=== PATIENT | female | born 1985 | race Caucasian/White ===

== ENCOUNTER 2018-01-15 06:20 | Emergency (ER) | payer SELFPAY ==
[~2018-01-15] VITALS: Ht 162.6 cm; Wt 74.8 kg
[~2018-01-15 06:20] MED LIST: CITA10TA59; HYDR-1421
[2018-01-15 07:23] VITALS: BP 137/91
[2018-01-15] MEDS ORDERED: KETOROLAC TROMETH 60MG/2ML VIAL IM ONE (08:15)
== END 2018-01-15 09:45 | disposition home or self-care (01) ==
LOC: ER 06:23
DX: M25.511 Pain in right shoulder (principal); F17.210 Nicotine dependence, cigarettes, uncomplicated; Z88.5 Allergy status to narcotic agent; Z87.442 Personal history of urinary calculi; Z79.899 Other long term (current) drug therapy
CPT/HCPCS: 73030; 93971; 96372; 99284; J1885

== ENCOUNTER 2018-01-24 16:28 | Emergency (ER) | payer SELFPAY ==
[~2018-01-24] VITALS: Ht 162.6 cm; Wt 63.5 kg
[2018-01-24 18:56] VITALS: BP 128/97
[2018-01-24] MEDS ORDERED: KETOROLAC TROMETH 60MG/2ML VIAL IM ONE (19:15)
[2018-01-24 20:06] LABS: Alcohol, Urine < 3.0 mg/dL (0-5); Amphetamine Screen, Urine POSITIVE (NEGATIVE); Barbiturate Scree,Urine NEGATIVE (NEGATIVE); Benzodiazephine Screen, Urine NEGATIVE (NEGATIVE); Cannabinoid Screen, Urine NEGATIVE (NEGATIVE); Cocaine Screen, Urine NEGATIVE (NEGATIVE); Opiate Scree,Urine NEGATIVE (NEGATIVE); Phencyclidine Screen, Urine NEGATIVE (NEGATIVE)
== END 2018-01-24 20:15 | disposition home or self-care (01) ==
LOC: ER 16:42
DX: M25.511 Pain in right shoulder (principal); F17.210 Nicotine dependence, cigarettes, uncomplicated; Z88.6 Allergy status to analgesic agent
CPT/HCPCS: 80307; 93005; 96372; 99285; J1885